=== PATIENT | male | born 1960 | race African-American/Black ===

== ENCOUNTER 2016-02-23 09:02 | Emergency (ER) | payer OTHER ==
--- NOTE | 2016-02-23 09:45 | ERRECORD ---
[facility] EMERGENCY RECORD HPI SHOULDER (09:12 SHAN) CHIEF COMPLAINT: Patient presents for evaluation of pain, Patient presents for evaluation of left shoulder intermittently with diarhea; missed work; needs note, does not want workup. HISTORIAN: History provided by patient. SEVERITY: Maximum severity of symptoms moderate, Currently symptoms are mild. TIME COURSE: Gradual onset of symptoms, Symptoms are improving. EXACERBATED BY: Patient's condition exacerbated by nothing. RELIEVED BY: Patient's condition relieved by nothing. ROS (09:19 SHAN) CONSTITUTIONAL: Negative constitutional review of systems, Historian denies chills, denies fever. EYES: Negative eye review of systems. ENT: Negative ears, nose, throat review of systems. CARDIOVASCULAR: Negative cardiovascular review of systems, Historian denies chest pain, denies palpitations. RESPIRATORY: Negative respiratory review of systems, Historian denies cough, denies shortness of breath. GI: Negative gastrointestinal review of systems, Historian denies abdominal pain, denies constipation, denies diarrhea. MUSCULOSKELETAL: Negative musculoskeletal review of systems. SKIN: Negative skin review of systems. NEUROLOGIC: Negative neurologic review of systems. ENDOCRINE: Negative endocrine review of systems. HEMO/LYMPHATIC: Normal hematologic/lymphatic system review. PSYCHIATRIC: Negative psychiatric review of systems. NOTES: All other ROS is negative except as listed in HPI. PAST MEDICAL HISTORY MEDICAL HISTORY: Flu vaccine up to date, Tetanus immunization up to date, Pneumococcal vaccine up to date. (09:10 ER) MALE SURGICAL HISTORY: Patient has no surgical history, Patient has no surgical history, Patient has no surgical history,. (09:10 ER) PSYCHIATRIC HISTORY: Notes: DENIES, No previous psychiatric history. VERIFIED 02/23/16. (09:10 ER) SOCIAL HISTORY: Patient drinks every day, more than 5 drinks per day, Patient denies drug use, Patient currently uses tobacco, smokes cigarettes, daily, Patient has smoked for 30 years, Patient smokes 1 pack per day, Lives at home, with family, Patient drinks every day, more than 5 drinks per day, Alcohol history notes: ABOUT A 6PK OF BEER A DAY, Patient denies drug use, Patient currently uses tobacco, smokes cigarettes. 02/23/16. (09:10 ER) NOTES: I have reviewed and agree with the PMH/PSxH/FamHx/SocHx obtained by the nurse. (09:19 SHAN) &a-1R&a+25V*p+0X*v1785U*c202B*c15G*c2P*p-0X&a-25V&a+1R Name: Kayode Hairston : 1960 M55 MedRec: [id number] AcctNum: [id number] Prepared: SunFeb 23, 2016 09:38 by Interface Page 1 of 3 pMD [facility] EMERGENCY RECORD KNOWN ALLERGIES No Known Drug Allergies CURRENT MEDICATIONS (09:08 ER) meloxicam: TABLET : Strength - 15 mg : ORAL Patient Dose: 15 mg Oral once a day.Take with food. acetaminophen-codeine: TABLET : Strength - 300 mg-30 mg : ORAL Patient Dose: 1 tab(s) Oral every 8 hours PRN. Robaxin-750: TABLET : Strength - 750 mg : ORAL Patient Dose: 1 tab(s) Oral every 6 hours PRN.as needed for muscle tension. VITAL SIGNS VITAL SIGNS: BP: 106/62, Pulse: 65, Resp: 16, Pain: 0, O2 sat: 99 on Room Air, Time: 02/23/2016 09:11. (09:11 ER) Temp: 97.8 (Tympanic), Time: 02/23/2016 09:14. (09:14 ER) PHYSICAL EXAM (: [facility]) CONSTITUTIONAL: Vital signs reviewed, Patient appears non toxic, Patient alert and oriented to person, place and time, Pt is in no apparent distress. HEAD: Head exam included findings of head atraumatic, normocephalic. EYES: Eye exam included findings of eyelids normal to inspection, Pupils equally round and reactive to light, Extraocular muscles intact. ENT: ENT exam normal, Nose exam normal, no nasal deformity, no bleeding from nares, Pharynx exam normal, Mouth exam normal, mucous membranes moist. NECK: Neck exam included findings of normal range of motion, Trachea midline. RESPIRATORY CHEST: Respiratory and chest exam normal, Breath sounds clear, No wheezing, No rales, Chest exam included findings of chest movement symmetrical, Chest expansion equal. CARDIOVASCULAR: Cardiovascular assessment normal, Cardiovascular exam included findings of heart rate regular rate and rhythm, Heart sounds normal. ABDOMEN MALE: Abdominal exam included findings of abdomen nontender, Bowel sounds normal, no mass, no pulsatile masses, no peritoneal signs, no rigidity, no guarding, no rebound. BACK: Back exam included findings of normal inspection, range of motion normal, no costovertebral angle tenderness. UPPER EXTREMITY: Upper extremity exam included findings of inspection normal, Range of motion normal. LOWER EXTREMITY: Lower extremity exam included findings of inspection normal, Range of motion normal, minimal pain with motion of left arm; no chest pain. &a-1R&a+25V*p+0X*d9558L*c202B*c15G*c2P*p-0X&a-25V&a+1R Name: Kayode Hairston : 1960 M55 MedRec: [id number] AcctNum: [id number] Prepared: SunFeb 23, 2016 09:38 by Interface Page 2 of 3 pMD [facility] EMERGENCY RECORD NEURO: Neuro exam findings include patient oriented to person, place and time, Speech normal, no focal motor deficits, no focal sensory deficits. SKIN: Skin exam included findings of skin warm, dry, and normal in color. LYMPHATIC: Lymphatic exam normal. PSYCHIATRIC: Psychiatric exam included findings of patient oriented to person place and time, Normal affect. DOCTOR NOTES (: SHAN) TEXT: Adult male with discussion of 12 beers a day; intermittent diarrhea (needs note for work missed, but relates diarrhea better), and vague intermittent pain in left shoulder with motion of joint. Denies chest pain. States symptoms better now but still needs a note. Patient prefers to avoid workup for now (risks discussed). PATIENT PLAN: The patient will be discharged. PROBLEM LIST No recorded problems DIAGNOSIS (: SHAN) FINAL: PRIMARY: Acute Gastroenteritis - presumed infectious, ADDITIONAL: left shoulder pain. PRESCRIPTION (: SHAN) Lomotil: TABLET : 2.5 mg-0.025 mg : ORAL : Quantity: 1 Unit: tab(s) Route: ORAL Schedule: See Notes Dispense: 20 Unit: tab(s) May substitute. Refills: No Refills . NOTES: one after each loose stool up to 8 per day maximum No Refills. DISPOSITION PATIENT: Disposition Type: Discharge, Disposition: *Discharge Home. (: SHAN) Patient left the department. (09:31 ER) Myles: ER=Marbella Walter=MD Chelita, Eliazar &a-1R&a+25V*p+0X*n0277O*c202B*c15G*c2P*p-0X&a-25V&a+1R Name: Kayode Hairston Rajwinder : 1960 M55 MedRec: [id number] AcctNum: [id number] Prepared: SunFeb 23, 2016 09:38 by Interface Page 3 of 3 pMD MTDD
--- NOTE | 2016-02-23 09:51 | PICIS ---
[facility] EMERGENCY RECORD TRIAGE (09:08 ER) TRIAGE NOTES: c/o diarrhea, off and on for 1 wk, denies n/v. (09:08 ER) PATIENT: NAME: Kayode Hairston, AGE: 55, GENDER: male, : Sun1960, TIME OF GREET: SunFeb 23, 2016 09:03, PREFERRED LANGUAGE: Malagasy, ETHNICITY: Not or , FALL RISK: NO, ECODE BILLING MAP: [facility], SSN: [id number], Zip Code: [address], KG WEIGHT: 76.20, PHONE: , , , PERSON ID: [id number], PCP: none. (09:08 ER) COMPLAINT: SHOULDER PAIN,DIARRHEA. (09:08 ER) ADMISSION: URGENCY: 4 Non Urgent, ADMISSION SOURCE: Home, TRANSPORT: Walk-in, BED: TRIAGE. (09:08 ER) SIRS SCORING: Heart Rate 55-109 (0), Temp range 96.8-101.1 (0), respiratory rate 12-24 (0), Mental Status altered: no (0). (09:10 ER) TRIAGE SCREENING: Patient denies suicidal ideation, Patient denies presence of domestic violence. (09:10 ER) TREATMENTS IN PROGRESS: Treatments given Prehospital: none. (09:10 ER) PROVIDERS: TRIAGE NURSE: Marbella aWlter. (09:08 ER) PREVIOUS VISIT ALLERGIES: No Known Drug Allergies. (09:08 ER) No Known Drug Allergies. (09:10 ER) KNOWN ALLERGIES No Known Drug Allergies CURRENT MEDICATIONS (09:08 ER) meloxicam: TABLET : Strength - 15 mg : ORAL Patient Dose: 15 mg Oral once a day.Take with food. acetaminophen-codeine: TABLET : Strength - 300 mg-30 mg : ORAL Patient Dose: 1 tab(s) Oral every 8 hours PRN. Robaxin-750: TABLET : Strength - 750 mg : ORAL Patient Dose: 1 tab(s) Oral every 6 hours PRN.as needed for muscle tension. VITAL SIGNS VITAL SIGNS: BP: 106/62, Pulse: 65, Resp: 16, Pain: 0, O2 sat: 99 on Room Air, Time: 02/23/2016 09:11. (09:11 ER) Temp: 97.8 (Tympanic), Time: 02/23/2016 09:14. (09:14 ER) NURSING ASSESSMENT: ABDOMEN (09:11 ER) CONSTITUTIONAL: Patient arrives ambulatory, Gait steady, History obtained from patient, Patient appears comfortable, Patient cooperative, Patient alert, Oriented to person, place and time, Skin warm, Skin dry, Patient complains of diarrhea x 1 wk. PAIN: Patient rates pain as 0 out of 10. ABDOMEN: Abdomen assessment findings include abdomen symmetrical, &a-1R&a+25V*p+0X*s4563E*c202B*c15G*c2P*p-0X&a-25V&a+1R Name: Kayode Hairston : 1960 M55 MedRec: [id number] AcctNum: [id number] Prepared: SunFeb 23, 2016 09:44 by Interface Page 1 of 5 pMD [facility] EMERGENCY RECORD Abdomen soft, non-tender, Bowel sound normal, no associated nausea, no associated vomiting, Associated with diarrhea, loose, no associated constipation, Date of last bowel movement: today. GENITOURINARY MALE: no associated urinary complaints. NURSING PROCEDURE: DISCHARGE NOTE (09:29 ER) DISCHARGE: Patient discharged to home, ambulating without assistance, driving self, unaccompanied, Summary of Care printed/ provided, Discharge instructions given to patient, Simple or moderate discharge teaching performed, Prescriptions given and instructions on side effects given, Name of prescription(s) given: tanyamotil, Above person(s) verbalized understanding of discharge instructions and follow-up care. BELONGINGS: Belongings remain with patient, Valuables remain with patient. SAFETY: Side rails up, Cart/Stretcher in lowest position, Call light within reach, Hospital ID band on. HPI SHOULDER (09:12 SHAN) CHIEF COMPLAINT: Patient presents for evaluation of pain, Patient presents for evaluation of left shoulder intermittently with diarhea; missed work; needs note, does not want workup. HISTORIAN: History provided by patient. SEVERITY: Maximum severity of symptoms moderate, Currently symptoms are mild. TIME COURSE: Gradual onset of symptoms, Symptoms are improving. EXACERBATED BY: Patient's condition exacerbated by nothing. RELIEVED BY: Patient's condition relieved by nothing. ROS (09:19 SHAN) CONSTITUTIONAL: Negative constitutional review of systems, Historian denies chills, denies fever. EYES: Negative eye review of systems. ENT: Negative ears, nose, throat review of systems. CARDIOVASCULAR: Negative cardiovascular review of systems, Historian denies chest pain, denies palpitations. RESPIRATORY: Negative respiratory review of systems, Historian denies cough, denies shortness of breath. GI: Negative gastrointestinal review of systems, Historian denies abdominal pain, denies constipation, denies diarrhea. MUSCULOSKELETAL: Negative musculoskeletal review of systems. SKIN: Negative skin review of systems. NEUROLOGIC: Negative neurologic review of systems. ENDOCRINE: Negative endocrine review of systems. HEMO/LYMPHATIC: Normal hematologic/lymphatic system review. PSYCHIATRIC: Negative psychiatric review of systems. NOTES: All other ROS is negative except as listed in HPI. &a-1R&a+25V*p+0X*d7303X*c202B*c15G*c2P*p-0X&a-25V&a+1R Name: Kayode Hairston : 1960 M55 MedRec: [id number] AcctNum: [id number] Prepared: SunFeb 23, 2016 09:44 by Interface Page 2 of 5 pMD [facility] EMERGENCY RECORD PAST MEDICAL HISTORY MEDICAL HISTORY: Flu vaccine up to date, Tetanus immunization up to date, Pneumococcal vaccine up to date. (09:10 ER) MALE SURGICAL HISTORY: Patient has no surgical history, Patient has no surgical history, Patient has no surgical history,. (09:10 ER) PSYCHIATRIC HISTORY: Notes: DENIES, No previous psychiatric history. VERIFIED 02/23/16. (09:10 ER) SOCIAL HISTORY: Patient drinks every day, more than 5 drinks per day, Patient denies drug use, Patient currently uses tobacco, smokes cigarettes, daily, Patient has smoked for 30 years, Patient smokes 1 pack per day, Lives at home, with family, Patient drinks every day, more than 5 drinks per day, Alcohol history notes: ABOUT A 6PK OF BEER A DAY, Patient denies drug use, Patient currently uses tobacco, smokes cigarettes. 02/23/16. (09:10 ER) NOTES: I have reviewed and agree with the PMH/PSxH/FamHx/SocHx obtained by the nurse. (09:19 SHAN) PHYSICAL EXAM (09: [facility]) CONSTITUTIONAL: Vital signs reviewed, Patient appears non toxic, Patient alert and oriented to person, place and time, Pt is in no apparent distress. HEAD: Head exam included findings of head atraumatic, normocephalic. EYES: Eye exam included findings of eyelids normal to inspection, Pupils equally round and reactive to light, Extraocular muscles intact. ENT: ENT exam normal, Nose exam normal, no nasal deformity, no bleeding from nares, Pharynx exam normal, Mouth exam normal, mucous membranes moist. NECK: Neck exam included findings of normal range of motion, Trachea midline. RESPIRATORY CHEST: Respiratory and chest exam normal, Breath sounds clear, No wheezing, No rales, Chest exam included findings of chest movement symmetrical, Chest expansion equal. CARDIOVASCULAR: Cardiovascular assessment normal, Cardiovascular exam included findings of heart rate regular rate and rhythm, Heart sounds normal. ABDOMEN MALE: Abdominal exam included findings of abdomen nontender, Bowel sounds normal, no mass, no pulsatile masses, no peritoneal signs, no rigidity, no guarding, no rebound. BACK: Back exam included findings of normal inspection, range of motion normal, no costovertebral angle tenderness. UPPER EXTREMITY: Upper extremity exam included findings of inspection normal, Range of motion normal. LOWER EXTREMITY: Lower extremity exam included findings of inspection normal, Range of motion normal, minimal pain with motion of left arm; no chest pain. NEURO: Neuro exam findings include patient oriented to person, &a-1R&a+25V*p+0X*o8980M*c202B*c15G*c2P*p-0X&a-25V&a+1R Name: Kayode Hairston : 1960 M55 MedRec: [id number] AcctNum: [id number] Prepared: SunFeb 23, 2016 09:44 by Interface Page 3 of 5 pMD [facility] EMERGENCY RECORD place and time, Speech normal, no focal motor deficits, no focal sensory deficits. SKIN: Skin exam included findings of skin warm, dry, and normal in color. LYMPHATIC: Lymphatic exam normal. PSYCHIATRIC: Psychiatric exam included findings of patient oriented to person place and time, Normal affect. EVENTS TRANSFER: Triage to Emergency Triage. (SunFeb 23, 2016 09:08 ER) Emergency Triage to Main ED -05. (09:09 ER) Removed from Emergency Main ED -05. (: ER) DOCTOR NOTES (: SHAN) TEXT: Adult male with discussion of 12 beers a day; intermittent diarrhea (needs note for work missed, but relates diarrhea better), and vague intermittent pain in left shoulder with motion of joint. Denies chest pain. States symptoms better now but still needs a note. Patient prefers to avoid workup for now (risks discussed). PATIENT PLAN: The patient will be discharged. PROBLEM LIST No recorded problems DIAGNOSIS ( SHAN) FINAL: PRIMARY: Acute Gastroenteritis - presumed infectious, ADDITIONAL: left shoulder pain. DISPOSITION PATIENT: Disposition Type: Discharge, Disposition: *Discharge Home. (: SHAN) Patient left the department. (: ER) INSTRUCTION (: SHAN) DISCHARGE: GASTROENTERITIS, VIRAL (6Y-ADULT), SHOULDER PAIN (UNCERTAIN CAUSE), WITHDRAWAL ALCOHOL. SPECIAL: 1. otc meds for shoulder discomfort 2. gradually reduce the alcohol; use otc thiamine 100 mg daily and at least one otc multiple vitamin 3. lomotil if needed for the diarrhea (script given) 4. return if condition worsens. PRESCRIPTION (:) Lomotil: TABLET : 2.5 mg-0.025 mg : ORAL : Quantity: 1 Unit: tab(s) Route: ORAL Schedule: See Notes Dispense: 20 Unit: tab(s) May substitute. Refills: No Refills . NOTES: one after each loose stool up to 8 per day maximum &a-1R&a+25V*p+0X*j0303D*c202B*c15G*c2P*p-0X&a-25V&a+1R Name: Kayode Hairston : 1960 M55 MedRec: [id number] AcctNum: [id number] Prepared: SunFeb 23, 2016 09:44 by Interface Page 4 of 5 pMD [facility] EMERGENCY RECORD No Refills. IMAGING (: ER) *DISCHARGE INSTRUCTIONS RECEIPT: Image captured from scanner. *SUPPLY CHARGE SHEET: Image captured from scanner. ADMIN () DIGITAL SIGNATURE: MD Merlos Stanley. Myles: ER=Marbella Walter=MD Merlos Stanley &a-1R&a+25V*p+0X*n2654S*c202B*c15G*c2P*p-0X&a-25V&a+1R Name: HairstonKayode : 1960 M55 MedRec: [id number] AcctNum: [id number] Prepared: Shey Feb 23, 2016 09:44 by Interface Page 5 of 5 pMD MTDD
== END 2016-02-23 09:30 | disposition home or self-care (01) ==
LOC: MADERS 09:02
DX: M25.512 Pain in left shoulder (principal); K52.9 Noninfective gastroenteritis and colitis, unspecified; F17.210 Nicotine dependence, cigarettes, uncomplicated
CPT/HCPCS: 99283

== ENCOUNTER 2016-03-11 15:54 | Emergency (ER) | payer OTHER ==
[2016-03-11] MEDS ORDERED: Benzonatate 100 MG CAP ONE (16:18)
[2016-03-11] MEDS ORDERED: Azithromycin 250 MG TAB ONE (16:18)
--- NOTE | 2016-03-11 16:39 | ERRECORD ---
[facility] EMERGENCY RECORD HPI COUGH (17:03 LHOD) CHIEF COMPLAINT: Patient presents for evaluation of cough. HISTORIAN: History provided by patient. 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 REPORTS CONTINUED MID CHEST CONGESTION WITH COUGH. REPORTS POSSIBLE LOW GRADE FEVER. ASSOCIATED WITH: No associated chest pain, No associated chills, No associated diarrhea, No associated diaphoresis, No associated dyspnea on exertion, Associated with fever, No associated increased inhaler use, No associated nausea, No associated orthopnea, No associated palpitations, No associated paroxysmal nocturnal dyspnea, No associated peripheral edema, No associated pleuritic symptoms, No associated stridor, No associated wheezing. EXACERBATED BY: Patient's condition exacerbated by nothing. RELIEVED BY: Patient's condition relieved by nothing. ROS (17:05 LHOD) CONSTITUTIONAL: Historian denies chills, reports fever. ENT: Historian denies stridor. CARDIOVASCULAR: Historian denies chest pain, denies diaphoresis, denies dyspnea on exertion, denies orthopnea, denies paroxysmal nocturnal dyspnea, denies palpitations. RESPIRATORY: Historian reports cough, denies shortness of breath, denies stridor, denies wheezing. GI: Historian denies abdominal pain, denies diarrhea, denies nausea, denies vomiting. MUSCULOSKELETAL: Historian denies back pain, denies neck pain. SKIN: Historian denies rash. NEUROLOGIC: Historian denies headache. HEMO/LYMPHATIC: Historian denies easy bruising. NOTES: All systems reviewed, negative except as described above. PAST MEDICAL HISTORY MEDICAL HISTORY: Flu vaccine up to date, Tetanus immunization up to date, Pneumococcal vaccine up to date. (16:04 MDEB) MALE SURGICAL HISTORY: Patient has no surgical history, Patient has no surgical history, Patient has no surgical history,. (16:04 MDEB) PSYCHIATRIC HISTORY: Notes: DENIES, No previous psychiatric history. VERIFIED 02/23/16. (16:04 MDEB) SOCIAL HISTORY: Patient drinks every day, more than 5 drinks per day, Patient denies drug use, Patient currently uses tobacco, smokes cigarettes, daily, Patient has smoked for 30 years, Patient smokes 1 pack per day, Lives at home, with family, Patient drinks every day, more than 5 drinks per day, Alcohol history notes: ABOUT A 6PK OF BEER A DAY, Patient denies drug use, Patient currently uses tobacco, smokes cigarettes. 02/23/16. (16:04 MDEB) NOTES: Nursing records reviewed, PT REPORTS HE IS A SMOKER, BUT NO PREVIOUS LUNG PROBLEMS. (17:06 LHOD) &a-1R&a+25V*p+0X*g5844G*c202B*c15G*c2P*p-0X&a-25V&a+1R Name: Kayode Hairston : 1960 M55 MedRec: [id number] AcctNum: [id number] Prepared: Sat Mar 11, 2016 17:14 by Interface Page 1 of 3 pMD [facility] EMERGENCY RECORD KNOWN ALLERGIES No Known Drug Allergies CURRENT MEDICATIONS No recorded medications VITAL SIGNS (16:02 MDEB) VITAL SIGNS: BP: 145/77, Pulse: 87, Resp: 20, Temp: 97.8 (Tympanic), Pain: 0, O2 sat: 98 on Room Air, Time: 03/11/2016 16:02. PHYSICAL EXAM (17:05 LHOD) CONSTITUTIONAL: Vital Signs Reviewed, Patient afebrile, Pulse normal, Blood pressure normal, Respiratory rate normal, Normal pulse oximetry, Patient appears non toxic, Patient appears pain free, Patient alert and oriented to person, place and time. EYES: Conjunctiva normal. ENT: Pharynx exam normal. NECK: Neck exam included findings of normal range of motion, Trachea midline. RESPIRATORY CHEST: Respiratory exam included findings of no respiratory distress, Breath sounds clear. CARDIOVASCULAR: Cardiovascular exam included findings of heart rate regular rate and rhythm, Heart sounds normal. ABDOMEN MALE: Abdominal exam included findings of abdomen nontender. BACK: Back exam normal. UPPER EXTREMITY: Upper extremity exam normal. LOWER EXTREMITY: Left lower leg exam normal, Right lower leg exam normal. NEURO: Neuro exam findings include patient oriented to person, place and time, Speech normal. SKIN: no rash. MEDICATION ADMINISTRATION SUMMARY Drug Name: Zithromax oral, Dose Ordered: 500 mg, Route: Oral, Status: Ordered, Time: 16:14 03/11/2016, Drug Name: benzonatate, Dose Ordered: 200 mg, Route: Oral, Status: Ordered, Time: 16:14 03/11/2016, Detailed record available in Medication Service section. DOCTOR NOTES (17:07 LHOD) TEXT: PT REQUESTS A NOTE TO RETURN TO WORK. PROBLEM LIST No recorded problems DIAGNOSIS (16:14 LHOD) FINAL: PRIMARY: VIRAL URI WITH BRONCHITIS. &a-1R&a+25V*p+0X*u6722U*c202B*c15G*c2P*p-0X&a-25V&a+1R Name: Kayode Hairston : 1960 M55 MedRec: [id number] AcctNum: [id number] Prepared: Sat Mar 11, 2016 17:14 by Interface Page 2 of 3 pMD [facility] EMERGENCY RECORD PRESCRIPTION (16:15 LHOD) benzonatate: CAPSULE (HARD, SOFT, ETC.) : 200 mg : ORAL : Quantity: 1 Unit: tab(s) Route: ORAL Schedule: every 8 hours PRN Dispense: 10 May substitute. Refills: No Refills . NOTES: 1 REFILL No Refills. Zithromax oral: TABLET : 250 mg : ORAL : Quantity: 1 Unit: tab(s) Route: ORAL Schedule: once a day (in the morning) Dispense: 4 May substitute. Refills: No Refills . NOTES: No Refills. DISPOSITION PATIENT: Disposition Type: Discharge, Disposition: *Discharge Home, Condition: Good. (16:14 LHOD) Patient left the department. (16:30 MDEB) Myles: LHOD=MD Pedro, Alyssa MDEB=MEG [place], Lori &a-1R&a+25V*p+0X*w3639W*c202B*c15G*c2P*p-0X&a-25V&a+1R Name: Kayode Hairston : 1960 M55 MedRec: [id number] AcctNum: [id number] Prepared: Sat Mar 11, 2016 17:14 by Interface Page 3 of 3 pMD MTDD
--- NOTE | 2016-03-11 16:46 | PICIS ---
[facility] EMERGENCY RECORD TRIAGE (16:04 MDEB) PATIENT: NAME: Kayode Hairston, AGE: 55, GENDER: male, : Sun1960, TIME OF GREET: Sat Mar 11, 2016 15:55, PREFERRED LANGUAGE: Pashto, RACE: Black or , ETHNICITY: Not or , FALL RISK: NO, ECODE BILLING MAP: [facility], SSN: [id number], Zip Code: [address], KG WEIGHT: 71.67, PHONE: , , , PERSON ID: [id number], PCP: NO PCP. (16:04 MDEB) TRIAGE NOTES: "COLD FOR A WEEK NOW" CONTINUES TO HAVE CONGESTION, FEVER, ET OCCASIONAL COUGH. (16:04 MDEB) COMPLAINT: FLU SYMPTOMS. (16:04 MDEB) ADMISSION: URGENCY: 3 Urgent, ADMISSION SOURCE: Home, TRANSPORT: Walk-in, BED: TRIAGE. (16:04 MDEB) ASSESSMENT: Assessment: PT AFEBRILE, NO COUGH NOTED. REQUIRES WORK NOTE. (16:04 MDEB) PAIN: Notes: DENIES PAIN AT THIS TIME. (16:04 MDEB) IMMUNIZATIONS: Tetanus immunization up to date. (16:04 MDEB) TRIAGE SCREENING: Patient denies suicidal ideation, Patient denies presence of domestic violence. (16:04 MDEB) PROVIDERS: TRIAGE NURSE: Lori Grove RN. (16:04 MDEB) VITAL SIGNS: BP 145/77, Pulse 87, Resp 20, Temp 97.8, (Tympanic), Pain 0, O2 Sat 98, on Room Air, Time 03/11/2016 16:02. (16:02 MDEB) PREVIOUS VISIT ALLERGIES: No Known Drug Allergies. (16:04 MDEB) KNOWN ALLERGIES No Known Drug Allergies CURRENT MEDICATIONS No recorded medications VITAL SIGNS (16:02 MDEB) VITAL SIGNS: BP: 145/77, Pulse: 87, Resp: 20, Temp: 97.8 (Tympanic), Pain: 0, O2 sat: 98 on Room Air, Time: 03/11/2016 16:02. NURSING ASSESSMENT: RESPIRATORY /CHEST (16:04 MDEB) CONSTITUTIONAL: Patient arrives ambulatory, Gait steady, History obtained from patient, Patient appears comfortable, Patient cooperative, Patient alert, Oriented to person, place and time, Skin warm, Skin dry, Skin normal in color, Mucous membranes pink, Mucous membranes moist, Patient is well-groomed, Patient complains of CONGESTION, FEVER, PT REPORTS FEELING BETTER THAN 2 DAYS AGO - BUT COULD NOT MAKE IT TO WORK TODAY ET NEED WORK NOTE. PAIN: Patient rates pain as 0 out of 10. RESPIRATORY/CHEST: Lungs auscultated, Respiratory assessment findings include respiratory effort easy, Respirations regular, Conversing normally, Neck and chest exam findings include trachea midline, Chest expansion equal, Chest movement symmetrical, Associated with cough, dry, Associated with fever, PT DOES NOT KNOW HOW HIGH BUT STATES HE WAS RUNNING FEVER LAST NIGHT, Notes: L LOWER LUNG SOUNDS COARSE. &a-1R&a+25V*p+0X*[id number]*c202B*c15G*c2P*p-0X&a-25V&a+1R Name: Kayode Hairston : 1960 M55 MedRec: [id number] AcctNum: [id number] Prepared: Sat Mar 11, 2016 17:21 by Interface Page 1 of 5 pMD [facility] EMERGENCY RECORD ENT: Ear assessment findings include ear normal to inspection, Congestion, bilaterally, Mouth and throat assessment findings include mouth inspection normal, Mucous membranes pink, and moist, Able to swallow, Speech normal. NOTES: Emotional support needed and given, Patient tolerated procedure well. SAFETY: Cart/Stretcher in lowest position, Call light within reach, Hospital ID band on. NURSING PROCEDURE: DISCHARGE NOTE (16:23 MDEB) DISCHARGE: Patient discharged to home, ambulating without assistance, driving self, unaccompanied, Summary of Care printed/ provided, Patient requested and was provided an electronic copy of Discharge Instructions, Transition record given to patient, Discharge instructions given to patient, Simple or moderate discharge teaching performed, MEDICATIONS, Prescriptions given and instructions on side effects given, Above person(s) verbalized understanding of discharge instructions and follow-up care, Patient treated and evaluated by physician. BELONGINGS: Belongings remain with patient, Valuables remain with patient. NOTES: Emotional support needed and given, Patient tolerated procedure well. MEDICATION ADMINISTRATION SUMMARY Drug Name: Zithromax oral, Dose Ordered: 500 mg, Route: Oral, Status: Ordered, Time: 16:14 03/11/2016, Drug Name: benzonatate, Dose Ordered: 200 mg, Route: Oral, Status: Ordered, Time: 16:14 03/11/2016, Detailed record available in Medication Service section. MEDICATION SERVICE (16:14 LHOD) benzonatate: Order: benzonatate - Dose: 200 mg : Oral Ordered by: Alyssa Vasquez MD Entered by: Alyssa Vasquez MD Sat Mar 11, 2016 16:14 , Acknowledged by: Lori Grove RN Sat Mar 11, 2016 16:17. Zithromax oral: Order: Zithromax oral (azithromycin) - Dose: 500 mg : Oral Ordered by: Alyssa Vasquez MD Entered by: Alyssa Vasquez MD Sat Mar 11, 2016 16:14 , Acknowledged by: Lori Grove RN Sat Mar 11, 2016 16:17. HPI COUGH (17:03 LHOD) CHIEF COMPLAINT: Patient presents for evaluation of cough. HISTORIAN: History provided by patient. 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 REPORTS CONTINUED MID CHEST CONGESTION WITH COUGH. REPORTS POSSIBLE LOW GRADE FEVER. ASSOCIATED WITH: No associated chest pain, No associated chills, No associated diarrhea, &a-1R&a+25V*p+0X*[id number]*c202B*c15G*c2P*p-0X&a-25V&a+1R Name: Kayode Hairston : 1960 M55 MedRec: [id number] AcctNum: [id number] Prepared: Sat Mar 11, 2016 17:21 by Interface Page 2 of 5 pMD [facility] EMERGENCY RECORD No associated diaphoresis, No associated dyspnea on exertion, Associated with fever, No associated increased inhaler use, No associated nausea, No associated orthopnea, No associated palpitations, No associated paroxysmal nocturnal dyspnea, No associated peripheral edema, No associated pleuritic symptoms, No associated stridor, No associated wheezing. EXACERBATED BY: Patient's condition exacerbated by nothing. RELIEVED BY: Patient's condition relieved by nothing. ROS (17:05 LHOD) CONSTITUTIONAL: Historian denies chills, reports fever. ENT: Historian denies stridor. CARDIOVASCULAR: Historian denies chest pain, denies diaphoresis, denies dyspnea on exertion, denies orthopnea, denies paroxysmal nocturnal dyspnea, denies palpitations. RESPIRATORY: Historian reports cough, denies shortness of breath, denies stridor, denies wheezing. GI: Historian denies abdominal pain, denies diarrhea, denies nausea, denies vomiting. MUSCULOSKELETAL: Historian denies back pain, denies neck pain. SKIN: Historian denies rash. NEUROLOGIC: Historian denies headache. HEMO/LYMPHATIC: Historian denies easy bruising. NOTES: All systems reviewed, negative except as described above. PAST MEDICAL HISTORY MEDICAL HISTORY: Flu vaccine up to date, Tetanus immunization up to date, Pneumococcal vaccine up to date. (16:04 MDEB) MALE SURGICAL HISTORY: Patient has no surgical history, Patient has no surgical history, Patient has no surgical history,. (16:04 MDEB) PSYCHIATRIC HISTORY: Notes: DENIES, No previous psychiatric history. VERIFIED 02/23/16. (16:04 MDEB) SOCIAL HISTORY: Patient drinks every day, more than 5 drinks per day, Patient denies drug use, Patient currently uses tobacco, smokes cigarettes, daily, Patient has smoked for 30 years, Patient smokes 1 pack per day, Lives at home, with family, Patient drinks every day, more than 5 drinks per day, Alcohol history notes: ABOUT A 6PK OF BEER A DAY, Patient denies drug use, Patient currently uses tobacco, smokes cigarettes. 02/23/16. (16:04 MDEB) NOTES: Nursing records reviewed, PT REPORTS HE IS A SMOKER, BUT NO PREVIOUS LUNG PROBLEMS. (17:06 LHOD) PHYSICAL EXAM (17:05 LHOD) CONSTITUTIONAL: Vital Signs Reviewed, Patient afebrile, Pulse normal, Blood pressure normal, Respiratory rate normal, Normal pulse oximetry, Patient appears non toxic, Patient appears pain free, Patient alert and oriented to person, place and time. EYES: Conjunctiva normal. &a-1R&a+25V*p+0X*[id number]*c202B*c15G*c2P*p-0X&a-25V&a+1R Name: Kayode Hairston : 1960 M55 MedRec: [id number] AcctNum: [id number] Prepared: Sat Mar 11, 2016 17:21 by Interface Page 3 of 5 pMD [facility] EMERGENCY RECORD ENT: Pharynx exam normal. NECK: Neck exam included findings of normal range of motion, Trachea midline. RESPIRATORY CHEST: Respiratory exam included findings of no respiratory distress, Breath sounds clear. CARDIOVASCULAR: Cardiovascular exam included findings of heart rate regular rate and rhythm, Heart sounds normal. ABDOMEN MALE: Abdominal exam included findings of abdomen nontender. BACK: Back exam normal. UPPER EXTREMITY: Upper extremity exam normal. LOWER EXTREMITY: Left lower leg exam normal, Right lower leg exam normal. NEURO: Neuro exam findings include patient oriented to person, place and time, Speech normal. SKIN: no rash. EVENTS TRANSFER: Triage to Emergency Triage. (Sat Mar 11, 2016 16:04 MDEB) Emergency Triage to Main ED -04. (16:04 MDEB) Removed from Emergency Main ED -04. (16:30 MDEB) DOCTOR NOTES (17:07 LHOD) TEXT: PT REQUESTS A NOTE TO RETURN TO WORK. PROBLEM LIST No recorded problems DIAGNOSIS (16:14 LHOD) FINAL: PRIMARY: VIRAL URI WITH BRONCHITIS. DISPOSITION PATIENT: Disposition Type: Discharge, Disposition: *Discharge Home, Condition: Good. (16:14 LHOD) Patient left the department. (16:30 MDEB) INSTRUCTION (16:16 LHOD) DISCHARGE: VIRAL URI ADULT. FOLLOWUP: Follow up with Primary Care Physician as needed. SPECIAL: MAY CONSIDER TAKING ANTIBIOTIC FOR BACTERIAL BRONCHITIS FOLLOWING A VIRAL UPPER RESPIRATORY INFECTION. *RETURN IF WORSE Follow-up with your PCP. PRESCRIPTION (16:15 LHOD) benzonatate: CAPSULE (HARD, SOFT, ETC.) : 200 mg : ORAL : Quantity: 1 Unit: tab(s) Route: ORAL Schedule: every 8 hours PRN Dispense: 10 May substitute. Refills: No Refills . &a-1R&a+25V*p+0X*[id number]*c202B*c15G*c2P*p-0X&a-25V&a+1R Name: Kayode Hairston : 1960 M55 MedRec: [id number] AcctNum: [id number] Prepared: Sat Mar 11, 2016 17:21 by Interface Page 4 of 5 pMD [facility] EMERGENCY RECORD NOTES: 1 REFILL No Refills. Zithromax oral: TABLET : 250 mg : ORAL : Quantity: 1 Unit: tab(s) Route: ORAL Schedule: once a day (in the morning) Dispense: 4 May substitute. Refills: No Refills . NOTES: No Refills. IMAGING WORK/SCHOOL RELEASE: Image captured from scanner. (16:20 MDCRISTY) DIS: Image captured from scanner. (16:27 [facility]) *SUPPLY CHARGE SHEET: Image captured from scanner. (16:27 [facility]) ADMIN (17:07 [facility]) DIGITAL SIGNATURE: MD Pedro, Alyssa. Myles: LHOD=MD Pedro, Alyssa NDEB=MEG Grove, Lori &a-1R&a+25V*p+0X*[id number]*c202B*c15G*c2P*p-0X&a-25V&a+1R Name: Kayode Hairston : 1960 M55 MedRec: [id number] AcctNum: [id number] Prepared: Arnoldo Mar 11, 2016 17:21 by Interface Page 5 of 5 pMD MTDD
== END 2016-03-11 16:23 | disposition home or self-care (01) ==
LOC: MADERS 15:54
DX: J40 Bronchitis, not specified as acute or chronic (principal); J06.9 Acute upper respiratory infection, unspecified; F17.210 Nicotine dependence, cigarettes, uncomplicated
CPT/HCPCS: 99283

== ENCOUNTER 2016-03-20 12:44 | Emergency (ER) | payer OTHER, SELFPAY ==
--- NOTE | 2016-03-20 13:59 | ERRECORD ---
[facility] EMERGENCY RECORD HPI ANXIETY (13:30 DHAM) CHIEF COMPLAINT: Patient presents for evaluation of anxiety. HISTORIAN: History provided by patient, "My son is going to the [place] and I have been stressed. I didn't sleep last night and I woke up and had a headache and my joints hurt so I didn't go to work today." " I need a work note for today." He tells me that his headache has resolved. denies depressive symptoms or thoughts of self harm. LOCATION: No localizing symptoms. QUALITY: Patient is alert and oriented to person, place and time, Ryder coma score is 15, Described as similar to previous episodes. SEVERITY: Current severity of pain rated as 5/10, all of my joints always hurt. TIME COURSE: Patient unable to describe onset of symptoms, Symptoms have resolved. ASSOCIATED WITH: No associated depression, No associated hallucinations, No associated loss of appetite, No associated stridor, No associated syncope, No associated substance abuse, No associated tremulousness. EXACERBATED BY: Patient's condition exacerbated by personal problems. RELIEVED BY: Patient's condition relieved by nothing. ROS (13:34 DHAM) CONSTITUTIONAL: Historian denies chills, denies fever, denies lethargy, denies weakness. EYES: Historian denies eye pain, denies vision changes. ENT: Historian denies hearing changes, denies rhinorrhea, denies sore throat. CARDIOVASCULAR: Historian denies chest pain, denies diaphoresis, denies exercise intolerance, denies syncope. RESPIRATORY: Historian denies cough, denies shortness of breath, denies sputum, denies wheezing. GI: Historian denies abdominal pain, denies appetite changes, denies diarrhea, denies stool changes, denies vomiting. GENITOURINARY MALE: Historian denies dysuria, denies incontinence, denies urinary frequency, denies urinary urgency. MUSCULOSKELETAL: Historian reports chronic diffuse arthralgias, Historian denies back pain, Historian denies myalgias, Historian denies neck pain. SKIN: Historian denies rash, denies skin lesions. NEUROLOGIC: Historian denies focal weakness, Historian denies mental status changes, Historian denies dizziness, Historian denies headache currnently but did have a LEDESMA earlier, Historian denies paresthesias. ENDOCRINE: Historian denies polydipsia, denies polyuria. HEMO/LYMPHATIC: Historian denies easy bruising. PSYCHIATRIC: Historian denies depression, Historian denies memory loss, Historian denies mood changes. He does feel stressed and like he needs a few days off of work. NOTES: All systems reviewed, negative except as described above. &a-1R&a+25V*p+0X*[id number]*c202B*c15G*c2P*p-0X&a-25V&a+1R Name: Kayode Hairston : 1960 M55 MedRec: [id number] AcctNum: [id number] Prepared: SunMar 20, 2016 15:37 by Interface Page 1 of 3 pMD [facility] EMERGENCY RECORD PAST MEDICAL HISTORY (13:09 MDEB) MEDICAL HISTORY: Flu vaccine up to date, Tetanus immunization up to date, Pneumococcal vaccine up to date. MALE SURGICAL HISTORY: Patient has no surgical history, Patient has no surgical history, Patient has no surgical history,. PSYCHIATRIC HISTORY: Notes: DENIES, No previous psychiatric history. VERIFIED 02/23/16. SOCIAL HISTORY: Patient drinks every day, more than 5 drinks per day, Patient denies drug use, Patient currently uses tobacco, smokes cigarettes, daily, Patient has smoked for 30 years, Patient smokes 1 pack per day, Lives at home, with family, Patient drinks every day, more than 5 drinks per day, Alcohol history notes: ABOUT A 6PK OF BEER A DAY, 03/20/16 12 PK A DAY Patient denies drug use, Patient currently uses tobacco, smokes cigarettes. 02/23/16. 03/20/16. KNOWN ALLERGIES No Known Drug Allergies (Unconfirmed) CURRENT MEDICATIONS No recorded medications VITAL SIGNS (13:06 MDEB) VITAL SIGNS: BP: 119/65, Pulse: 57, Resp: 20, Temp: 98.4 (Tympanic), Pain: 5, O2 sat: 99 on Room Air, Time: 03/20/2016 13:06. PHYSICAL EXAM (13:35 DHAM) CONSTITUTIONAL: Vital signs reviewed, Patient afebrile, Pulse normal, Blood pressure normal, Respiratory rate normal. HEAD: Head exam included findings of head atraumatic, normocephalic. EYES: Eye exam included findings of eyelids normal to inspection, Pupils equally round and reactive to light, Extraocular muscles intact, Conjunctiva normal. ENT: ENT exam normal, Ear exam normal, external ear normal, tympanic membranes normal, Nose exam normal, no bleeding from nares, Pharynx exam normal, Uvula exam normal, Tonsil exam normal, not enlarged, no exudates, Mouth exam normal, mucous membranes moist. NECK: Neck exam included findings of normal range of motion, Trachea midline, no carotid bruits, no jugular venous distention, no cervical adenopathy. RESPIRATORY CHEST: Respiratory exam included findings of no respiratory distress, Breath sounds clear, No wheezing, No rales, Breath sounds not diminished. CARDIOVASCULAR: Cardiovascular exam included findings of heart rate regular rate and rhythm, Heart sounds normal, Point of maximal impulse normal, Pedal pulses normal. ABDOMEN MALE: Abdominal exam included findings of abdomen nontender, Bowel sounds normal, Liver normal, Spleen normal, no &a-1R&a+25V*p+0X*j0271Y*c202B*c15G*c2P*p-0X&a-25V&a+1R Name: Kayode Hairston : 1960 M55 MedRec: [id number] AcctNum: [id number] Prepared: SunMar 20, 2016 15:37 by Interface Page 2 of 3 pMD [facility] EMERGENCY RECORD distension, no peritoneal signs. BACK: Back exam normal. UPPER EXTREMITY: Upper extremity exam included findings of inspection normal, Range of motion normal, Motor strength normal, Sensation intact, Radial pulse normal, normal motor exam of bilat UE with normal ROM to passive and active rom. normal sensation. LOWER EXTREMITY: Lower extremity exam normal. NEURO: Neuro exam findings include patient oriented to person, place and time, Speech normal, Memory normal, Cranial nerves intact, Deep tendon reflexes normal, no focal motor deficits, no focal sensory deficits. SKIN: Skin exam included findings of skin warm, dry, no rash. LYMPHATIC: Lymphatic exam normal. PSYCHIATRIC: Psychiatric exam included findings of patient oriented to person place and time, Normal affect. DOCTOR NOTES (13:36 DHAM) TEXT: Pt has some anxiety re: his son and "personal issues." He mentions a court case that he was supposed to attend today. He denies acute suicidal ideation, depressive symptoms or wanting to hurt anyone else. "I love myself." I will give a work note for today but have advised him that we elly not be doing this in the future. He has no acute medical concerns today. PROBLEM LIST No recorded problems DIAGNOSIS (13:45 KAYE) FINAL: PRIMARY: situational reaction. PRESCRIPTION No recorded prescriptions DISPOSITION PATIENT: Disposition Type: Discharge, Disposition: *Discharge Home. (13:45 KAYE) Patient left the department. (13:51 INES) Myles: KAYE=MD Leatha, Nicanor CHACON=MEG Grove, Lori &a-1R&a+25V*p+0X*[id number]*c202B*c15G*c2P*p-0X&a-25V&a+1R Name: Karel Hairstoncheko Purdy : 1960 M55 MedRec: [id number] AcctNum: [id number] Prepared: SunMar 20, 2016 15:37 by Interface Page 3 of 3 pMD MTDD
--- NOTE | 2016-03-20 14:05 | PICIS ---
[facility] EMERGENCY RECORD TRIAGE (13:09 MDEB) PATIENT: NAME: Kayode Hairston, AGE: 55, GENDER: male, : Sun1960, TIME OF GREET: SunMar 20, 2016 12:45, PREFERRED LANGUAGE: Polish, RACE: Black or , ETHNICITY: Not or , FALL RISK: NO, ECODE BILLING MAP: [facility], SSN: [id number], Zip Code: [id number], KG WEIGHT: 73.48, PHONE: , , , PERSON ID: [id number], PCP: NO PCP. (13:09 MDEB) TRIAGE NOTES: HEADACHE R SHOULDER. (13:09 MDEB) COMPLAINT: MIGRANE, RIGHT SHOULDER PAIN. (13:09 MDEB) ADMISSION: URGENCY: 4 Non Urgent, ADMISSION SOURCE: Home, TRANSPORT: Walk-in, BED: TRIAGE. (13:09 MDEB) PAIN: Patient complains of pain described as, aching, on a scale 0-10 patient rates pain as 5, Location HEADACHE, Pain is intermittent, Notes: PT REPORTS HEADACHE IS GONE AT THIS TIME. (13:09 MDEB) TRIAGE SCREENING: Patient denies suicidal ideation, Patient denies presence of domestic violence. (13:09 MDEB) PROVIDERS: TRIAGE NURSE: Lori Grove RN. (13:09 MDEB) VITAL SIGNS: BP 119/65, Pulse 57, Resp 20, Temp 98.4, (Tympanic), Pain 5, O2 Sat 99, on Room Air, Time 03/20/2016 13:06. (13:06 MDEB) PREVIOUS VISIT ALLERGIES: No Known Drug Allergies. (13:09 MDEB) KNOWN ALLERGIES No Known Drug Allergies (Unconfirmed) CURRENT MEDICATIONS No recorded medications VITAL SIGNS (13:06 MDEB) VITAL SIGNS: BP: 119/65, Pulse: 57, Resp: 20, Temp: 98.4 (Tympanic), Pain: 5, O2 sat: 99 on Room Air, Time: 03/20/2016 13:06. NURSING ASSESSMENT: EXTREMITY UPPER (13:09 MDEB) CONSTITUTIONAL: Patient arrives ambulatory, Gait steady, History obtained from patient, Patient appears, anxious, Patient cooperative, Patient alert, Oriented to person, place and time, Skin warm, Skin dry, Skin normal in color, Mucous membranes pink, Mucous membranes moist, Patient is well-groomed, Patient complains of ANXIETY, PT REPORTS HEADACE IS RESOLVED AT THIS TIME. PT ALSO REPORTS HE GOT HIS MEDICATIONS FILLED. WHEN ASKED WHO PRIMARY CARE - DOESNT HAVE ONE - WHEN ASKED WHO FILLED MEDS - STATES PHYSICIAN HERE. PAIN: aching pain, to the right shoulder, on a scale 0-10 patient rates pain as 5. LEFT UPPER EXTREMITY: Left upper extremity assessment findings include capillary refill less than 2 seconds, Skin color normal to hand, Skin temperature to hand warm, Distal sensation intact, Muscle tone normal. &a-1R&a+25V*p+0X*s1889M*c202B*c15G*c2P*p-0X&a-25V&a+1R Name: Kayode Hairston : 1960 M55 MedRec: [id number] AcctNum: [id number] Prepared: SunMar 20, 2016 15:37 by Interface Page 1 of 5 pMD [facility] EMERGENCY RECORD RIGHT UPPER EXTREMITY: Right upper extremity assessment findings include capillary refill less than 2 seconds, Skin color normal to hand, Skin temperature to hand warm, Distal sensation intact, Muscle tone normal, Notes: PAIN TO R SHOULDER. NOTES: Emotional support needed and given, Patient tolerated procedure well. SAFETY: Cart/Stretcher in lowest position, Call light within reach, Hospital ID band on, Notes: PT SITTING IN CHAIR. NURSING PROCEDURE: DISCHARGE NOTE (13:48 MDEB) DISCHARGE: Patient discharged to home, ambulating without assistance, driving self, unaccompanied, Summary of Care printed/ provided, Patient requested and was provided an electronic copy of Discharge Instructions, Transition record given to patient, Above person(s) verbalized understanding of discharge instructions and follow-up care, Patient treated and evaluated by physician, Notes: WORK NOTE PROVIDED. BELONGINGS: Belongings remain with patient, Valuables remain with patient. NOTES: Emotional support needed and given, Patient tolerated procedure well. HPI ANXIETY (13:30 DHAM) CHIEF COMPLAINT: Patient presents for evaluation of anxiety. HISTORIAN: History provided by patient, "My son is going to the [place] and I have been stressed. I didn't sleep last night and I woke up and had a headache and my joints hurt so I didn't go to work today." " I need a work note for today." He tells me that his headache has resolved. denies depressive symptoms or thoughts of self harm. LOCATION: No localizing symptoms. QUALITY: Patient is alert and oriented to person, place and time, [place] coma score is 15, Described as similar to previous episodes. SEVERITY: Current severity of pain rated as 5/10, all of my joints always hurt. TIME COURSE: Patient unable to describe onset of symptoms, Symptoms have resolved. ASSOCIATED WITH: No associated depression, No associated hallucinations, No associated loss of appetite, No associated stridor, No associated syncope, No associated substance abuse, No associated tremulousness. EXACERBATED BY: Patient's condition exacerbated by personal problems. RELIEVED BY: Patient's condition relieved by nothing. ROS (13:34 DHAM) CONSTITUTIONAL: Historian denies chills, denies fever, denies lethargy, denies weakness. EYES: Historian denies eye pain, denies vision changes. ENT: Historian denies hearing changes, denies rhinorrhea, denies sore throat. CARDIOVASCULAR: Historian denies chest pain, denies diaphoresis, &a-1R&a+25V*p+0X*r0562B*c202B*c15G*c2P*p-0X&a-25V&a+1R Name: Kayode Hairston : 1960 M55 MedRec: [id number] AcctNum: [id number] Prepared: SunMar 20, 2016 15:37 by Interface Page 2 of 5 pMD [facility] EMERGENCY RECORD denies exercise intolerance, denies syncope. RESPIRATORY: Historian denies cough, denies shortness of breath, denies sputum, denies wheezing. GI: Historian denies abdominal pain, denies appetite changes, denies diarrhea, denies stool changes, denies vomiting. GENITOURINARY MALE: Historian denies dysuria, denies incontinence, denies urinary frequency, denies urinary urgency. MUSCULOSKELETAL: Historian reports chronic diffuse arthralgias, Historian denies back pain, Historian denies myalgias, Historian denies neck pain. SKIN: Historian denies rash, denies skin lesions. NEUROLOGIC: Historian denies focal weakness, Historian denies mental status changes, Historian denies dizziness, Historian denies headache currnently but did have a LEDESMA earlier, Historian denies paresthesias. ENDOCRINE: Historian denies polydipsia, denies polyuria. HEMO/LYMPHATIC: Historian denies easy bruising. PSYCHIATRIC: Historian denies depression, Historian denies memory loss, Historian denies mood changes. He does feel stressed and like he needs a few days off of work. NOTES: All systems reviewed, negative except as described above. PAST MEDICAL HISTORY (13:09 [facility]) MEDICAL HISTORY: Flu vaccine up to date, Tetanus immunization up to date, Pneumococcal vaccine up to date. MALE SURGICAL HISTORY: Patient has no surgical history, Patient has no surgical history, Patient has no surgical history,. PSYCHIATRIC HISTORY: Notes: DENIES, No previous psychiatric history. VERIFIED 02/23/16. SOCIAL HISTORY: Patient drinks every day, more than 5 drinks per day, Patient denies drug use, Patient currently uses tobacco, smokes cigarettes, daily, Patient has smoked for 30 years, Patient smokes 1 pack per day, Lives at home, with family, Patient drinks every day, more than 5 drinks per day, Alcohol history notes: ABOUT A 6PK OF BEER A DAY, 03/20/16 12 PK A DAY Patient denies drug use, Patient currently uses tobacco, smokes cigarettes. 02/23/16. 03/20/16. PHYSICAL EXAM (13:35 DHAM) CONSTITUTIONAL: Vital signs reviewed, Patient afebrile, Pulse normal, Blood pressure normal, Respiratory rate normal. HEAD: Head exam included findings of head atraumatic, normocephalic. EYES: Eye exam included findings of eyelids normal to inspection, Pupils equally round and reactive to light, Extraocular muscles intact, Conjunctiva normal. ENT: ENT exam normal, Ear exam normal, external ear normal, tympanic membranes normal, Nose exam normal, no bleeding from nares, Pharynx exam normal, Uvula exam normal, Tonsil exam normal, not &a-1R&a+25V*p+0X*[id number]*c202B*c15G*c2P*p-0X&a-25V&a+1R Name: Kayode Hairston Rajwinder : 1960 M55 MedRec: [id number] AcctNum: [id number] Prepared: SunMar 20, 2016 15:37 by Interface Page 3 of 5 pMD [facility] EMERGENCY RECORD enlarged, no exudates, Mouth exam normal, mucous membranes moist. NECK: Neck exam included findings of normal range of motion, Trachea midline, no carotid bruits, no jugular venous distention, no cervical adenopathy. RESPIRATORY CHEST: Respiratory exam included findings of no respiratory distress, Breath sounds clear, No wheezing, No rales, Breath sounds not diminished. CARDIOVASCULAR: Cardiovascular exam included findings of heart rate regular rate and rhythm, Heart sounds normal, Point of maximal impulse normal, Pedal pulses normal. ABDOMEN MALE: Abdominal exam included findings of abdomen nontender, Bowel sounds normal, Liver normal, Spleen normal, no distension, no peritoneal signs. BACK: Back exam normal. UPPER EXTREMITY: Upper extremity exam included findings of inspection normal, Range of motion normal, Motor strength normal, Sensation intact, Radial pulse normal, normal motor exam of bilat UE with normal ROM to passive and active rom. normal sensation. LOWER EXTREMITY: Lower extremity exam normal. NEURO: Neuro exam findings include patient oriented to person, place and time, Speech normal, Memory normal, Cranial nerves intact, Deep tendon reflexes normal, no focal motor deficits, no focal sensory deficits. SKIN: Skin exam included findings of skin warm, dry, no rash. LYMPHATIC: Lymphatic exam normal. PSYCHIATRIC: Psychiatric exam included findings of patient oriented to person place and time, Normal affect. EVENTS TRANSFER: Triage to Emergency Triage. (SunMar 20, 2016 13:09 MDEB) Emergency Triage to Main ED -03. (13:11 MDEB) Removed from Emergency Main ED -03. (13:51 MDEB) O2SAT INTERPRETATION (13:36 DHAM) O2SAT: Single pulse oximetry, Oxygen saturation 99%, on room air, Oxygen saturation interpretation: Normal, No intervention required. DOCTOR NOTES (13:36 DHAM) TEXT: Pt has some anxiety re: his son and "personal issues." He mentions a court case that he was supposed to attend today. He denies acute suicidal ideation, depressive symptoms or wanting to hurt anyone else. "I love myself." I will give a work note for today but have advised him that we elly not be doing this in the future. He has no acute medical concerns today. PROBLEM LIST No recorded problems &a-1R&a+25V*p+0X*y2489V*c202B*c15G*c2P*p-0X&a-25V&a+1R Name: Kayode Hairston : 1960 M55 MedRec: [id number] AcctNum: [id number] Prepared: SunMar 20, 2016 15:37 by Interface Page 4 of 5 pMD [facility] EMERGENCY RECORD DIAGNOSIS (13:45 DHAM) FINAL: PRIMARY: situational reaction. DISPOSITION PATIENT: Disposition Type: Discharge, Disposition: *Discharge Home. (13:45 DHAM) Patient left the department. (13:51 MDEB) INSTRUCTION (13:47 DHAM) DISCHARGE: STRESS REACTION. SPECIAL: Out of work today. Return for any concerns. PRESCRIPTION No recorded prescriptions IMAGING (13:50 EB) *DISCHARGE INSTRUCTIONS RECEIPT: Image captured from scanner. *SUPPLY CHARGE SHEET: Image captured from scanner. ADMIN (15:28 DHAM) DIGITAL SIGNATURE: MD Leatha, Nicanor. Myles: KAYE=MD Zhang Darren MDEB=MEG Grove, Lori &a-1R&a+25V*p+0X*z1888U*c202B*c15G*c2P*p-0X&a-25V&a+1R Name: Kayode Hairston : 1960 M55 MedRec: [id number] AcctNum: [id number] Prepared: SunMar 20, 2016 15:37 by Interface Page 5 of 5 pMD [facility]
== END 2016-03-20 13:48 | disposition home or self-care (01) ==
LOC: MADERS 12:44
DX: F43.22 Adjustment disorder with anxiety (principal); F17.210 Nicotine dependence, cigarettes, uncomplicated
CPT/HCPCS: 99283

== ENCOUNTER 2016-06-03 20:53 | Emergency (ER) | payer OTHER | END 2016-06-03 21:30 | disposition home or self-care (01) | LOC: MADERS 20:53 | DX: R19.7 Diarrhea, unspecified (principal); M79.602 Pain in left arm; M79.601 Pain in right arm; F17.210 Nicotine dependence, cigarettes, uncomplicated | CPT/HCPCS: 99283 ==

== ENCOUNTER 2016-08-07 15:10 | Emergency (ER) | payer SELFPAY ==
[2016-08-07] MEDS ORDERED: Ketorolac Tromethamine 60 MG/2 ML VIAL ONE (15:48)
[2016-08-07] MEDS ORDERED: Dexamethasone 4 MG TAB ONE (15:48)
== END 2016-08-07 16:00 | disposition home or self-care (01) ==
LOC: MADERS 15:10
DX: M25.512 Pain in left shoulder (principal); F17.210 Nicotine dependence, cigarettes, uncomplicated
CPT/HCPCS: 99283; J1885; J8540

== ENCOUNTER 2016-09-13 17:05 | Emergency (ER) | payer SELFPAY | END 2016-09-13 18:03 | disposition home or self-care (01) | LOC: MADERS 17:05 | DX: B35.3 Tinea pedis (principal); R19.7 Diarrhea, unspecified; F17.210 Nicotine dependence, cigarettes, uncomplicated | CPT/HCPCS: 99283 ==

== ENCOUNTER 2016-12-11 15:02 | Emergency (ER) | payer OTHER, SELFPAY ==
[2016-12-11] MEDS ORDERED: Benzonatate 100 MG CAP ONE (15:26)
[2016-12-11] MEDS ORDERED: Ibuprofen 800 MG TAB ONE (15:26)
[2016-12-11] MEDS ORDERED: Dexamethasone 4 MG TAB ONE (15:26)
== END 2016-12-11 15:40 | disposition home or self-care (01) ==
LOC: MADERS 15:02
DX: M25.511 Pain in right shoulder (principal); M25.512 Pain in left shoulder; F17.210 Nicotine dependence, cigarettes, uncomplicated
CPT/HCPCS: 99283; J8540

== ENCOUNTER 2017-03-04 11:43 | Emergency (ER) | payer OTHER ==
[2017-03-04] MEDS ORDERED: AMOXicillin 250 MG CAP ONE (12:15)
[2017-03-04] MEDS ORDERED: Naproxen 500 MG TAB ONE (12:15)
[2017-03-04] MEDS ORDERED: Benzonatate 100 MG CAP ONE (12:15)
== END 2017-03-04 12:29 | disposition home or self-care (01) ==
LOC: MADERS 11:43
DX: J20.9 Acute bronchitis, unspecified (principal); F17.210 Nicotine dependence, cigarettes, uncomplicated
CPT/HCPCS: 99283

== ENCOUNTER 2017-07-30 17:17 | Emergency (ER) | payer OTHER | END 2017-07-30 18:05 | disposition home or self-care (01) | LOC: MADERS 17:17 | DX: M19.012 Primary osteoarthritis, left shoulder (principal); G89.29 Other chronic pain; F17.210 Nicotine dependence, cigarettes, uncomplicated | CPT/HCPCS: 99283 ==

== ENCOUNTER 2019-08-23 15:02 | Emergency (ER) | payer OTHER ==
--- NOTE | 2019-08-23 16:00 | RAD ---
RADIOGRAPH CHEST 1 VIEW: 08/23/19 HISTORY: 59-year-old male with cough. FINDINGS: There are no air space densities, pulmonary edema, pneumothorax, or cardiomegaly. The lateral costop hrenic angles are sharp. IMPRESSION: No acute cardiopulmonary findings. jn [] POS: JIN
[2019-08-23 16:18] LABS: #Lymphocytes 1.4 thou/uL (1.20-3.40); #Monocytes 0.3 thou/uL (0.11-0.59); #Neutrophils 2.9 thou/uL (1.40-6.50); %Basophils 0.9 % (0.0-1.0); %Lymphocytes 30.1 % (21.0-51.0); %Monocytes 7.3 % (0.0-10.0); %Neutrophils 60.8 % (42.0-75.0); Hemoglobin 15.1 g/dL (14.0-18.0); Mean Corpuscular HGB CONC 31.7 g/dL (32.0-36.0); Mean Corpuscular Hemoglobin 30.3 pg (27.0-31.0); Mean Corpuscular Volume 95.5 fL (78.0-98.0); Mean Platelet Volume 8.1 fL (7.4-10.4); Platelet Count 280 thou/uL (130-400); RBC Distribution Width 12.8 % (11.5-14.5); Red Blood Cell (RBC) Count 4.99 mill/uL (4.70-6.10); White Blood Cell (WBC) Count 4.7 thou/uL (4.8-10.8)
[2019-08-23 16:21] LABS: ALT (SGPT) 18 U/L (8-55); AST (SGOT) 23 U/L (5-34); Albumin 4.4 g/dL (3.5-5.0); Alkaline Phosphatase 67 U/L (40-110); Anion Gap 17 mmol/L (10-20); BUN (Urea Nitrogen) 12 mg/dL (8.4-25.7); Bilirubin, Total 0.3 mg/dL (0.2-1.2); CK (CPK) 320 U/L (30-200); Calc. Creatinine Clearance 0 mL/min (70-130); Calcium 9.4 mg/dL (7.8-10.44); Carbon Dioxide 21 mmol/L (22-29); Chloride 106 mmol/L (98-107); Estimated GFR-MDRD Greater than 90; Glucose 97 mg/dL (70-105); Potassium 3.9 mmol/L (3.5-5.1); Protein, Total 7.4 g/dL (6.0-8.3); Sodium 140 mmol/L (136-145)
[2019-08-25 11:39] LABS: SARS-CoV-2 MS2 Positive; SARS-CoV-2 N Gene Negative; SARS-CoV-2 S Gene Negative; SARS-CoV-2 orf1ab Negative
== END 2019-08-23 16:37 | disposition home or self-care (01) ==
LOC: MADERS 15:02
DX: R05 Cough (principal); R07.9 Chest pain, unspecified; R53.81 Other malaise; Z20.828 Contact with and (suspected) exposure to other viral communicable diseases; F17.210 Nicotine dependence, cigarettes, uncomplicated
CPT/HCPCS: 36415; 71045; 80053; 82550; 84484; 85025; 87635; 93005; U0003

== ENCOUNTER 2019-10-09 17:11 | Emergency (ER) | payer OTHER, SELFPAY ==
[2019-10-09] MEDS ORDERED: Ketorolac Tromethamine 30 MG/ML VIAL ONE (18:18)
[2019-10-09] MEDS ORDERED: predniSONE 20 MG TAB ONE (18:18)
[2019-10-09] MEDS ORDERED: Morphine 4 MG/ML VIAL ONE (18:18)
[2019-10-09] MEDS ORDERED: Morphine 2 MG/ML SYRINGE ONE (18:18)
== END 2019-10-09 18:57 | disposition home or self-care (01) ==
LOC: MADERS 17:11
DX: S39.012A Strain of muscle, fascia and tendon of lower back, initial encounter (principal); F17.210 Nicotine dependence, cigarettes, uncomplicated; X58.XXXA Exposure to other specified factors, initial encounter
CPT/HCPCS: 96372; 99283; J1885; J2270; J7512

== ENCOUNTER 2020-07-30 10:44 | Emergency (ER) | payer SELFPAY ==
[2020-07-30] MEDS ORDERED: Ketorolac Tromethamine 30 MG/ML VIAL ONE (11:34)
== END 2020-07-30 11:55 | disposition home or self-care (01) ==
LOC: MADERS 10:44
DX: S83.91XA Sprain of unspecified site of right knee, initial encounter (principal); F17.210 Nicotine dependence, cigarettes, uncomplicated; X58.XXXA Exposure to other specified factors, initial encounter
CPT/HCPCS: 96372; 99283; J1885

== ENCOUNTER 2020-09-30 07:37 | Emergency (ER) | payer SELFPAY ==
[2020-09-30 23:31] LABS: SARS-CoV-2 PCR by NAA DETECTED (NotDetected)
== END 2020-09-30 08:05 | disposition home or self-care (01) ==
LOC: MADERS 07:37
DX: U07.1 COVID-19 (principal); F17.210 Nicotine dependence, cigarettes, uncomplicated
CPT/HCPCS: 99283; U0003; U0005

== ENCOUNTER 2023-09-09 16:51 | Emergency (ER) | payer OTHER ==
[2023-09-09 18:37] LABS: Influenza A by NAA Not Detected (NotDetected); Influenza B by NAA Not Detected (NotDetected); SARS-CoV-2 NAA Rapid Test DETECTED (NotDetected)
== END 2023-09-09 19:01 | disposition home or self-care (01) ==
LOC: MADERS 16:51
DX: U07.1 COVID-19 (principal); F17.210 Nicotine dependence, cigarettes, uncomplicated
CPT/HCPCS: 99284

== ENCOUNTER 2023-09-21 13:45 | Emergency (ER) | payer OTHER ==
[~2023-09-21 13:45] MED LIST: Iopamidol 370 76% 100 ML VIAL ONE
[2023-09-21] MEDS ORDERED: Morphine 4 MG/ML VIAL ONE ×2 (14:40→17:16)
[2023-09-21] MEDS ORDERED: Sodium Chloride 0.9% 1,000 ML ONE (14:40)
[2023-09-21] MEDS ORDERED: Ondansetron PF 4 MG/2 ML Vial ONE (14:40)
[2023-09-21 14:56] LABS: #Basophils 0.1 thou/uL (0.0-0.2); #Eosinphils 0.1 thou/uL (0.0-0.7); #Lymphocytes 1.3 thou/uL (1.20-3.40); #Monocytes 0.5 thou/uL (0.11-0.59); #Neutrophils 4.9 thou/uL (1.40-6.50); %Basophils 1.1 % (0.0-1.0); %Eosinophils 1.3 % (0.0-10.0); %Lymphocytes 19.1 % (21.0-51.0); %Monocytes 6.9 % (0.0-10.0); %Neutrophils 71.7 % (42.0-75.0); Hematocrit 44.5 % (42.0-52.0); Hemoglobin 13.4 g/dL (14.0-18.0); Mean Corpuscular HGB CONC 30.2 g/dL (32.0-36.0); Mean Corpuscular Hemoglobin 27.9 pg (27.0-31.0); Mean Corpuscular Volume 92.2 fl (78.0-98.0); Mean Platelet Volume 6.5 fL (7.4-10.4); Platelet Count 342 10x3/uL (130-400); RBC Distribution Width 13.4 % (11.5-14.5); Red Blood Cell (RBC) Count 4.82 mill/uL (4.70-6.10); White Blood Cell (WBC) Count 6.8 10x3/uL (4.8-10.8)
[2023-09-21 15:58] LABS: ALT (SGPT) 23 U/L (8-55); AST (SGOT) 22 U/L (5-34); Albumin 3.9 g/dL (3.4-4.8); Alkaline Phosphatase 84 U/L (40-110); Anion Gap 15 mmol/L (10-20); BUN (Urea Nitrogen) 10 mg/dL (8.4-25.7); Bilirubin, Total 0.4 mg/dL (0.2-1.2); Calc. Creatinine Clearance 0 mL/min (70-130); Calcium 9.4 mg/dL (7.8-10.44); Carbon Dioxide 22 mmol/L (23-31); Chloride 104 mmol/L (98-107); Estimated GFR 98; Globulin 3.4 g/dL (2.4-3.5); Glucose 106 mg/dL (80-115); Lipase 16 U/L (8-78); Potassium 3.7 mmol/L (3.5-5.1); Protein, Total 7.3 g/dL (5.8-8.1); Sodium 137 mmol/L (136-145)
[2023-09-21] MEDS ORDERED: Piperacillin/Tazobactam 3.375 GM VIAL ONE (17:16)
== END 2023-09-21 18:04 | disposition short-term general hospital (02) ==
LOC: MADERS 13:45
DX: K56.609 Unspecified intestinal obstruction, unspecified as to partial versus complete obstruction (principal); K57.92 Diverticulitis of intestine, part unspecified, without perforation or abscess without bleeding; F17.210 Nicotine dependence, cigarettes, uncomplicated
CPT/HCPCS: 43753; 71045; 74019; 74177; 80053; 83605; 83690; 85025; 96365; 96375; 96376; J2272; J2405; J2543; J7030; Q9967

== ENCOUNTER 2024-09-14 17:19 | Emergency (ER) | payer OTHER ==
[2024-09-14 18:14] LABS: Glucose, Urine (Dipstick) Negative (Negative); Leukocyte Negative (Negative); Protein, Urine (Dipstick) Negative (Neg-Trace); Specific Gravity, Urine 1.025 (1.005-1.030)
[2024-09-14 18:18] LABS: Bacteria/HPF 1+ HPF (None Seen); CAUTI Indications for Culture Dysuria,urgency,freq; RBC/HPF Greater than 50 HPF (0-3); WBC/HPF 0-3 HPF (0-3)
[2024-09-14 18:19] LABS: Urine Culture Reflex No No
[2024-09-14 18:47] LABS: #Basophils 0.1 thou/uL (0.0-0.2); #Eosinophils 0.1 thou/uL (0.0-0.7); #Lymphocytes 2.0 thou/uL (1.20-3.40); #Monocytes 0.6 thou/uL (0.11-0.59); #Neutrophils 3.3 thou/uL (1.40-6.50); %Basophils 2.1 % (0.0-1.0); %Eosinophils 1.9 % (0.0-10.0); %Lymphocytes 32.3 % (21.0-51.0); %Monocytes 10.0 % (0.0-10.0); %Neutrophils 53.7 % (42.0-75.0); Hematocrit 45.5 % (42.0-52.0); Hemoglobin 14.6 g/dL (14.0-18.0); Mean Corpuscular Hemoglobin 29.6 pg (27.0-31.0); Mean Corpuscular Volume 92.5 fl (78.0-98.0); Platelet Count 276 10x3/uL (130-400); Red Blood Cell (RBC) Count 4.92 mill/uL (4.70-6.10); White Blood Cell (WBC) Count 6.1 10x3/uL (4.8-10.8)
[2024-09-14 18:51] LABS: INR-International Normal Ratio 1.0; Prothrombin Time 12.8 sec (12.0-14.7)
[2024-09-14 18:52] LABS: PTT 29.1 sec (22.9-36.1)
[2024-09-14 18:59] LABS: ALT (SGPT) 31 U/L (Less than 45); AST (SGOT) 48 U/L (11-34); Albumin 4.7 g/dL (3.1-4.5); Alkaline Phosphatase 82 U/L (40-110); Anion Gap 15 mmol/L (10-20); BUN (Urea Nitrogen) 16 mg/dL (8.4-25.7); Bilirubin, Total 0.4 mg/dL (0.3-1.2); Calc. Creatinine Clearance 0 mL/min (70-130); Calcium 9.4 mg/dL (7.8-10.44); Carbon Dioxide 21 mmol/L (23-31); Chloride 108 mmol/L (98-107); Globulin 3.3 g/dL (2.4-3.5); Glucose 95 mg/dL (80-115); Potassium 4.3 mmol/L (3.5-5.1); Sodium 140 mmol/L (136-145)
== END 2024-09-14 19:27 | disposition home or self-care (01) ==
LOC: MADERS 17:19
DX: R31.0 Gross hematuria (principal); N40.0 Benign prostatic hyperplasia without lower urinary tract symptoms; I10 Essential (primary) hypertension; E11.9 Type 2 diabetes mellitus without complications; E78.5 Hyperlipidemia, unspecified; K57.92 Diverticulitis of intestine, part unspecified, without perforation or abscess without bleeding; C18.9 Malignant neoplasm of colon, unspecified
CPT/HCPCS: 36415; 80053; 81001; 85025; 85610; 85730; 99283

== ENCOUNTER 2024-10-14 12:42 | Outpatient (CLI) | payer OTHER | END 2024-10-14 12:43 | disposition home or self-care (01) | LOC: MADLAB 12:42 | PROVIDERS: ATTEND Urology | DX: N40.1 Benign prostatic hyperplasia with lower urinary tract symptoms (principal) | CPT/HCPCS: 36415; 84153 ==